=== PATIENT | male | born 1960 | race African-American/Black ===

== ENCOUNTER → 2017-02-08 | Outpatient (CLI) | payer MEDICARE, MEDICAID ==
[2016-02-23 14:49] VITALS: BP 169/61
[~2017-02-08] MED LIST: ASPI-482 PO; BACL10TA PO; BUPIVACAINE MPF 0.5% 10 ML VIAL for KCIC. IJ ONE; CRESTOR20 MG PO; DONE10TA34 PO; FERR325C PO; IOHEXOL 300 MG/ML 50 ML VIAL. INT ART ONE; ISOS60TA PO; LAMO25TA5 PO; LIDOCAINE 1% Multi-Dose 20 ML VIAL. ID ONE; LISI-334 PO; METO50TA2 PO; MIRT15TA3 PO; OMEP20CA9 PO; OXYC1TAB7 PO; RISP1TAB43 PO; SERT100T8 PO; ZOLP10TA PO; methylPREDNISolone ACETATE 40 MG/ML VIAL. INT ART ONE
--- NOTE | 2017-02-08 16:21 | KCIC ---
PROCEDURE Therapeutic left hip injection using fluoroscopic guidance. HISTORY Hip pain. TECHNIQUE The procedure was explained to the patient as were potential risks, including infection, bleeding or allergic reaction. All questions were answered. Informed written and verbal consent was obtained. The hip was prepped and draped in the usual sterile manner. Following administration of local anesthetic, a 22-gauge spinal needle was advanced into the hip joint without difficulty, with care taken to avoid the vascular structures. Stylet was removed and following negative aspiration, a mixture of 4 cc Omnipaque-300, 2 cc (80 mg) Depo-Medrol, 4 cc 0.5% Marcaine and 4 cc 1% lidocaine were injected without difficulty. Fluoroscopy demonstrates uniform and satisfactory distribution of the injection through the hip. The needle was removed. There was good hemostasis at the injection site. The patient left in stable condition without immediate complication. The patient was given postprocedural instructions, instructed to contact us or the emergency room if there are any complications. Note there is communication of the joint with the iliopsoas bursa. A single spot image was obtained. FLUOROSCOPY TIME: 37 seconds Electronically signed by: Rolando Menchaca MD (Feb 08, 2017 16:19:50)
== END | disposition home or self-care (01) ==
LOC: KCIC 10:00
PROVIDERS: ATTEND Nurse Practitioner Gerontology
DX: M25.552 Pain in left hip (principal); G89.29 Other chronic pain
CPT/HCPCS: 20610; 77002

== ENCOUNTER → 2019-09-15 | Outpatient (CLI) | payer MEDICARE, MEDICAID ==
[2016-02-23 14:49] VITALS: BP 169/61
[~2019-09-15] MED LIST changes: -BUPIVACAINE MPF 0.5% 10 ML VIAL for KCIC. IJ ONE; +CONTRAST GIVEN. MC PRN; -DONE10TA34 PO; +DONE10TA61 PO; +IOHEXOL 240 MG/ML 100 ML VIAL. IV ONE; +IOHEXOL 240 MG/ML 50ML VIAL. PO ONE; +IOHEXOL 300 MG/ML 100ML VIAL. IV ONE; -IOHEXOL 300 MG/ML 50 ML VIAL. INT ART ONE; +IOHEXOL 300 MG/ML 50 ML VIAL. PO ONE; -LIDOCAINE 1% Multi-Dose 20 ML VIAL. ID ONE; -METO50TA2 PO; +METO50TA6 PO; +OMEP20CA10 PO; -OMEP20CA9 PO; -methylPREDNISolone ACETATE 40 MG/ML VIAL. INT ART ONE
--- NOTE | 2019-09-16 08:51 | RAD ---
CT ABD PELV W/ORAL IV CONTRAST Indication: Acute abdominal pain Technique: Postcontrast CT imaging was performed of the abdomen pelvis, multiplanar reconstruction images submitted. Oral contrast was also given. One or more of the following individualized dose reduction techniques were utilized for this examination: 1. Automated exposure control 2. Adjustment of the mA and/or kV according to patient size 3. Use of iterative reconstruction technique. Comparison: July 12, 2007 Findings: There are some small foci of somewhat branching nodularity of the right lower lobe the visualized lung base, largest individual nodule about 0.4 cm. There is increased fullness of the limbs of the adrenal glands bilaterally, possible nodularity on the right about 2.1 cm and possible nodularity on the left about 1.8 cm. There again has been cholecystectomy. No new focal abnormality is identified of the pancreas, spleen, liver. Both kidneys enhance, no hydronephrosis. Bowel is not significantly dilated. There is no free air or free fluid. Urinary bladder is somewhat distended. There is minimal fat in the left inguinal canal, no bowel. There is a hypodense 6 cm transverse by 1.5 cm AP by 8 mm CC fluid collection of the ventral parasagittal rectus sheath which is somewhat larger as previously about 4.5 cm transverse by 0.7 cm AP. Appendix is not confidently identified if still present. There is variable retained stool in the colon. The colon is not opacified with oral contrast during the exam to accurately evaluate for wall thickening. No significant inflammatory type change is seen about the bowel. There is scattered plaque of the abdominal aorta and iliac arteries. IMPRESSION: 1. There is somewhat larger hypodense fluid collection of the ventral parasagittal rectal sheath of uncertain sterility, may be due to more chronic seroma or liquefied hematoma. 2. There are some small foci of somewhat branching nodularity of the visualized right lower lobe near the lung base, pattern more suggestive of sequela of infectious or inflammatory etiologies. 3. There is some increased fullness and relative nodularity of the bilateral adrenal glands, could be due to hyperplasia or sequela of previous hemorrhage although underlying nodules not excluded, better characterized with thin section noncontrast CT. 4. Appendix is not clearly identified on this exam. There is some variable retained stool in the colon. Electronically signed by: Chi Atkins MD (09/16/2019 8:48 AM) [id number]
== END | disposition home or self-care (01) ==
LOC: CT 09:24
PROVIDERS: ATTEND Surgery
DX: K56.41 Fecal impaction (principal)
CPT/HCPCS: 74177; Q9966; Q9967

== ENCOUNTER 2019-10-27 08:29 | Outpatient (CLI) | payer MEDICARE, MEDICAID ==
[~2019-10-27] VITALS: Ht 157.5 cm; Wt 81.2 kg
[2019-10-27] VITALS (8 sets, daily range): BP systolic 90–148; BP diastolic 55–77
[~2019-10-27 08:29] MED LIST changes: -CONTRAST GIVEN. MC PRN; -IOHEXOL 240 MG/ML 100 ML VIAL. IV ONE; -IOHEXOL 240 MG/ML 50ML VIAL. PO ONE; -IOHEXOL 300 MG/ML 100ML VIAL. IV ONE; -IOHEXOL 300 MG/ML 50 ML VIAL. PO ONE; +OMEP-229 PO; -OMEP20CA10 PO
[2019-10-27] MEDS ORDERED: RANO500T2 PO (08:51)
[2019-10-27] MEDS ORDERED: SPIR25TA5 PO (08:51)
[2019-10-27] MEDS ORDERED: AMLO10TA8 PO (08:51)
[2019-10-27] MEDS ORDERED: DULO60CA45 PO (08:51)
[2019-10-27] MEDS ORDERED: RISP2TAB3 PO (08:51)
[2019-10-27 09:02] LABS: BASO # 0.1 x10^3/uL (0.0-0.2); BASO % 1 % (0-3); EOS # 0.3 x10^3/uL (0.0-0.7); EOS % 4 % (0-3); HEMOGLOBIN 11.7 g/dL (13.0-17.5); LYMPH # 1.5 x10^3/uL (1.0-4.8); LYMPH % 19 % (24-48); MEAN CORPUSCULAR HEMOGLOBIN 28 pg (25-35); MEAN CORPUSCULAR HGB CONC 34 g/dL (31-37); MEAN CORPUSCULAR VOLUME 84 fL (79-100); MONO # 0.7 x10^3/uL (0.0-1.1); MONO % 10 % (0-9); NEUT % 66 % (31-73); PLATELET COUNT 240 x10^3/uL (140-400); RED BLOOD COUNT 4.17 x10^6/uL (4.30-5.70); WHITE BLOOD COUNT 7.7 x10^3/uL (4.0-11.0)
[2019-10-27 09:14] LABS: CALCIUM 9.2 mg/dL (8.5-10.1); CREATININE 1.3 mg/dL (0.7-1.3); GFR 68.4; POTASSIUM 4.3 mmol/L (3.5-5.1)
[2019-10-27 09:15] LABS: PROTHROMBIN TIME PATIENT 13.5 SEC (11.7-14.0)
[2019-10-27 09:17] LABS: TOTAL BILIRUBIN 0.3 mg/dL (0.2-1.0); TOTAL PROTEIN 8.2 g/dL (6.4-8.2)
[2019-10-27] MEDS ORDERED: LIDOCAINE WITH 8.4% SOD BICARB 3 ML DISP.SYRIN. ONE (09:45)
[2019-10-27] MEDS ORDERED: MIDAZOLAM HCL/PF 2 MG/2 ML VIAL. ONE (09:56)
[2019-10-27] MEDS ORDERED: fentaNYL PF VIAL 100 MCG/2 ML VIAL ONE (09:57)
[2019-10-27] MEDS ORDERED: fentaNYL PF VIAL 100 MCG/2 ML VIAL IV ONE (10:15)
[2019-10-27] MEDS ORDERED: LIDOCAINE WITH 8.4% SOD BICARB 3 ML DISP.SYRIN. IJ ONE (10:15)
[2019-10-27] MEDS ORDERED: MIDAZOLAM HCL/PF 2 MG/2 ML VIAL. IV ONE (10:15)
--- NOTE | 2019-10-27 12:20 | NUR ---
pt discharged to home with family. tolerated po and ambulated. piv dc'd
--- NOTE | 2019-10-27 14:51 | RAD ---
Ultrasound-guided aspiration, anterior abdominal wall fluid 10/27/2019 Clinical Indication: Recurrent anterior abdominal wall fluid collection, likely seroma. Discussion: The procedure was explained in its entirety to the patient or the patients designated school admissions representative by a member of the treatment team, including a discussion of the risks, benefits and commonly accepted alternatives to the procedure, as well as the expected consequences of no therapy whatsoever. Discussion of the risks included, but was not limited to, those that are most frequent and those that are rare but possibly severe or life-threatening, as well as the possibility of unforeseen complications. All elements of maximal sterile barrier technique including the use of a cap, mask, sterile gown, sterile gloves, large sterile sheet, appropriate hand hygiene, and 2% chlorhexidine for cutaneous antisepsis (or acceptable alternative antiseptic per current guidelines) were followed for this procedure. Ultrasound interrogation of the super umbilical anterior abdominal midline reveals a small fluid collection within the deep subcutaneous tissues adjacent to the hernia mesh. 1% lidocaine was used to achieve local anesthesia. An 18-gauge Yueh needle was then advanced into the fluid collection under ultrasound guidance and a hardcopy ultrasound was recorded and 25 cc of slightly turbid n fluid was removed and sent for microbiologic analysis. The needle was removed and hemostasis was achieved with manual compression. The procedures performed under conscious sedation including continuous cardiopulmonary monitoring via dedicated sedation nurse. [id number] sedation time: 15 minutes Impression: Ultrasound-guided aspiration of a recurrent anterior abdominal wall fluid collection.
== END 2019-10-27 12:21 | disposition home or self-care (01) ==
LOC: INTRAD 08:29
PROVIDERS: ATTEND Surgery
DX: K91.873 Postprocedural seroma of a digestive system organ or structure following other procedure (principal); Z79.01 Long term (current) use of anticoagulants
CPT/HCPCS: 10030; 36415; 80053; 85025; 85610; 87071; 87075; C1892; J2250; J3010; 99152